=== PATIENT | female | born 1945 | race Hispanic/Latino ===

== ENCOUNTER 2017-05-05 21:20 | Observation (INO) | payer MEDICARE, MEDICAID ==
--- NOTE | 2017-05-05 21:28 | ED PDOC ---
Arrival/HPI - General Time Seen by Provider: 05/05/17 21:23 Historian: Patient - History of Present Illness Narrative History of Present Illness (Text): 05/05/17 21:27 Moni Suarez is a 71 year old female, whose past medical history includes hypertension, asthma/COPD, diabetes, anemia, and GERD, who presents to the Emergency department complaining of chest pain. Patient states she has been experiencing since mid-sternal chest tightness since this morning. Patient states she originally attributed pain to acid reflux but pain did not resolve. Patient was given 4 baby aspirin en route with improvement. Patient notes she had a similar episode 2 days prior. Patient denies any fever, chills, shortness of breath, nausea, vomiting, diarrhea, urinary symptoms, back pain, neck pain, headache, dizziness, or any other complaints. Time/Duration: Other (today) Symptom Onset: Gradual Symptom Course: Unchanged Quality: Pressure Activities at Onset: Light Context: Home Past Medical History - Provider Review Nursing Documentation Reviewed: Yes - Infectious Disease Hx of Infectious Diseases: None - Past Medical History Past Medical History: Non-Contributing - Cardiac Hx Hypertension: Yes - Pulmonary Hx Chronic Obstructive Pulmonary Disease (COPD): Yes - Neurological Hx Dementia: No Hx Seizures: No - Renal Hx Renal Disorder: No - Hematological/Oncological Hx Anemia: Yes - Musculoskeletal/Rheumatological Hx Falls: No - Gastrointestinal Hx Gastroesophageal Reflux: Yes - Psychiatric Hx Depression: No Hx Emotional Abuse: No Hx Physical Abuse: No Hx Substance Use: No - Past Surgical History Past Surgical History: Non-Contributing - Surgical History Other/Comment: lumbosacral spine surg. - Anesthesia Hx Anesthesia: Yes Hx Anesthesia Reactions: No Hx Malignant Hyperthermia: No - Suicidal Assessment Feels Threatened In Home Enviroment: No Family/Social History - Physician Review Nursing Documentation Reviewed: Yes Family/Social History: Unknown Family HX Smoking Status: Former Smoker Hx Alcohol Use: No Hx Substance Use: No Hx Substance Use Treatment: No Allergies/Home Meds Allergies/Adverse Reactions: Allergies honey Allergy (Verified 05/05/17 21:27) RASH dust mites Allergy (Uncoded 05/05/17 21:27) RASH Home Medications: Home Meds Medication Instructions Recorded Confirmed Clonidine Hydrochloride [Clonidine 0.1 mg PO TID 01/10/12 05/05/17 HCl] Diphenhydramine Hydrochlorid 50 mg PO HS 01/10/12 05/05/17 [Benadryl] Montelukast Sodium [Singulair] 10 mg PO DAILY 01/10/12 05/05/17 Cetirizine Hydrochloride 10 mg PO DAILY 12/24/14 05/05/17 [Cetirizine] Hydrochlorothiazide 25 mg PO DAILY 12/24/14 05/05/17 Metformin Hydrochloride [Metformin] 500 mg PO DAILY 12/24/14 05/05/17 Omeprazole 20 mg PO DAILY 12/24/14 05/05/17 Simvastatin 20 mg PO DAILY 12/24/14 05/05/17 Valsartan [Diovan] 320 mg PO DAILY 12/24/14 05/05/17 Review of Systems - Physician Review All systems were reviewed & negative as marked: Yes - Review of Systems Constitutional: Normal. absent: Fevers Eyes: Normal ENT: Normal Respiratory: Normal. absent: SOB, Cough Cardiovascular: Chest Pain Gastrointestinal: Normal. absent: Abdominal Pain, Diarrhea, Nausea, Vomiting Genitourinary Female: Normal. absent: Dysuria, Frequency, Hematuria, Urine Output Changes Musculoskeletal: Normal. absent: Back Pain, Neck Pain Skin: Normal. absent: Rash Neurological: Normal. absent: Headache, Dizziness Endocrine: Normal Hemo/Lymphatic: Normal Psychiatric: Normal Physical Exam Vital Signs Reviewed: Yes Vital Signs Temp Pulse Resp BP Pulse Ox 05/05/17 23:35 70 14 115/65 96 05/05/17 21:46 97.8 F 75 18 137/86 97 Temperature: Afebrile Blood Pressure: Normal Pulse: Regular Respiratory Rate: Normal Appearance: Positive for: Well-Appearing, Non-Toxic, Comfortable Pain Distress: None Mental Status: Positive for: Alert and Oriented X 3 - Systems Exam Head: Present: Atraumatic, Normocephalic Pupils: Present: PERRL Extroacular Muscles: Present: EOMI Conjunctiva: Present: Normal Mouth: Present: Moist Mucous Membranes Neck: Present: Normal Range of Motion Respiratory/Chest: Present: Clear to Auscultation, Good Air Exchange. No: Respiratory Distress, Accessory Muscle Use Cardiovascular: Present: Regular Rate and Rhythm, Normal S1, S2. No: Murmurs Abdomen: Present: Normal Bowel Sounds. No: Tenderness, Distention, Peritoneal Signs Back: Present: Normal Inspection Upper Extremity: Present: Normal Inspection. No: Cyanosis, Edema Lower Extremity: Present: Normal Inspection. No: Edema Neurological: Present: GCS=15, CN II-XII Intact, Speech Normal Skin: Present: Warm, Dry, Normal Color. No: Rashes Psychiatric: Present: Alert, Oriented x 3, Normal Insight, Normal Concentration Medical Decision Making ED Course and Treatment: 05/05/17 21:27 Impression: 71 year old female complaining of chest tightness today. Plan: -- EKG -- Chest X-ray -- Labs, cardiac enzymes -- Zofran -- Reassess and disposition Prior Visits: Notes and results from previous visits were reviewed. On 12/24/2014, pt was seen in the Emergency department for right lower back pain. Pt was admitted to the hospital for further evaluation. Progress Notes: Reviewed EKG, NSR at 67 bpm. Sinus arrhythmia. Incomplete RBBB. Non-specific ST/ T wave changes. 05/05/17 23:25 Reviewed radiology, Chest X-ray shows: Limitations: Radiographic technique - mild. Rotation - mild. Lungs: Minimal subsegmental atelectasis/scarring. No consolidation. Pleural space: No definite pleural effusion. No pneumothorax. Heart: [id number] cardiomegaly. Mediastinum: Tortuosity of thoracic aorta. Bones/joints: No acute fracture. Tubes, lines and devices: Leads overlying chest. IMPRESSION: 1. Cardiomegaly. 2. Incidental/non-acute findings are described above. 05/05/17 23:[address] Sanders, who is aware and accepts pt in to her service. Accepts pt in to her service. Pt will go to Telemetry observation for chest pain. Pt is no acute distress. Discussed results and hospital observation plan with pt , who is aware and verbalizes understanding. - Lab Interpretations Lab Results: 05/05/17 21:35 05/05/17 21:35 Lab Results 05/05/17 21:35: WBC 8.2, RBC 4.04, Hgb 10.9 L, Hct 34.0 L, MCV 84.2, MCH 27.0, MCHC 32.1, RDW 14.9 H, Plt Count 336, MPV 10.1 05/05/17 21:35: Sodium 140, Potassium 4.4, Chloride 100, Carbon Dioxide 28, Anion Gap 16, BUN 27 H, Creatinine 1.0, Est GFR ( Amer) > 60, Est GFR ( Non-Af Amer) 55, Random Glucose 92, Calcium 10.2, Total Bilirubin 0.5, AST 32, ALT 36, Alkaline Phosphatase 62, Lactate Dehydrogenase 511, Total Creatine Kinase 164, Troponin I < 0.01, Total Protein 7.0, Albumin 4.1, Globulin 2.8, Albumin/Globulin Ratio 1.5 05/05/17 21:35: PT 10.4, INR 0.96, APTT 29.9 I have reviewed the lab results: Yes - RAD Interpretation Radiology Orders: 05/05/17 21:29 CHEST PORTABLE [RAD] Stat Senior Publications Specialist: Radiologist - EKG Interpretation Interpreted by ED Physician: Yes Type: 12 lead EKG - Medication Orders Current Medication Orders: Acetaminophen (Tylenol 325mg Tab) 650 mg PO Q6H PRN PRN Reason: Fever >100.4 F Albuterol/Ipratropium (Duoneb 3 Mg/0.5 Mg (3 Ml) Ud) 3 ml IH [id number] [facility] Last Admin: 05/06/17 07:37 Dose: 3 ml Aspirin (Aspirin Chewable) 81 mg PO DAILY [facility] Last Admin: 05/06/17 10:02 Dose: 81 mg Atorvastatin Calcium (Lipitor) 10 mg PO DIN [facility] Insulin Human Regular (Humulin R Low) 0 units SC ACHS [facility] PRN Reason: Protocol Last Admin: 05/06/17 11:41 Dose: Not Given Non-Admin Reason: Blood Sugar Parameter Magnesium Oxide (Mag-Ox) 400 mg PO BID [facility] Stop: 05/06/17 23:59 Last Admin: 05/06/17 11:42 Dose: 400 mg Metoprolol Succinate (Toprol Xl) 25 mg PO BRK [facility] Last Admin: 05/06/17 08:19 Dose: 25 mg Montelukast Sodium (Singulair) 10 mg PO HS [facility] Pantoprazole Sodium (Protonix Ec Tab) 40 mg PO 0630 [facility] Last Admin: 05/06/17 06:21 Dose: 40 mg Discontinued Medications Magnesium Sulfate 2 gm/ Sodium (Chloride) 104 mls @ 102 mls/hr IVPB ONCE ONE Stop: 05/06/17 11:50 Last Admin: 05/06/17 11:42 Dose: 102 mls/hr Ondansetron HCl (Zofran Inj) 4 mg IVP ONCE ONE Stop: 05/05/17 21:42 Last Admin: 05/05/17 21:44 Dose: 4 mg - Scribe Statement The provider has reviewed the documentation as recorded by the [place] Provider Loriibshantal Attestation: All medical record entries made by the Scribe were at my direction and personally dictated by me. I have reviewed the chart and agree that the record accurately reflects my personal performance of the history, physical exam, medical decision making, and the department course for this patient. I have also personally directed, reviewed, and agree with the discharge instructions and disposition. Disposition/Present on Arrival - Present on Arrival Any Indicators Present on Arrival: No History of DVT/PE: No History of Uncontrolled Diabetes: Yes Urinary Catheter: No History of Decub. Ulcer: No History Surgical Site Infection Following: None - Disposition Have Diagnosis and Disposition been Completed?: Yes Diagnosis: Chest pain Disposition: HOSPITALIZED Disposition Time: 23:35 Condition: GOOD
[2017-05-05 21:32] VITALS: BMI 46.8
[2017-05-05 21:54] LABS: MEAN CELL VOLUME 84.2 fl (80.0-105.0); MEAN CORPUSCULAR HGB CONC 32.1 g/dl (31.0-37.0); MEAN PLATELET VOLUME 10.1 fl (7.0-11.0); RED CELL DISTRIBUTION WIDTH 14.9 % (11.5-14.5); WHITE BLOOD COUNT 8.2 10^3/ul (4.5-11.0)
[2017-05-05 22:02] LABS: INR 0.96 (0.93-1.08); PARTIAL THROMBOPLASTIN TIME 29.9 Seconds (23.7-30.8)
[2017-05-05 22:11] LABS: ALB/GLOB RATIO 1.5 (1.1-1.8); ALKALINE PHOSPHATASE 62 U/L (38-126); ALT/SGPT 36 U/L (7-56); AST/SGOT 32 U/L (14-36); BILIRUBIN,TOTAL 0.5 mg/dL (0.2-1.3); BLOOD UREA NITROGEN 27 mg/dL (7-21); CALCIUM 10.2 mg/dL (8.4-10.5); CARBON DIOXIDE 28 mmol/L (21-33); CHLORIDE 100 mmol/L (95-110); GFR AFRICAN-AMERICAN > 60; GLUCOSE,RANDOM 92 mg/dL (70-110); POTASSIUM 4.4 mmol/L (3.6-5.0); SODIUM 140 mmol/L (132-148)
[2017-05-05 22:26] LABS: TROPONIN I < 0.01 ng/mL
--- NOTE | 2017-05-05 23:00 | RAD ---
EXAM: XR Chest, 1 View CLINICAL HISTORY: 71 years old, female; Pain; Chest pain TECHNIQUE: Frontal view of the chest. COMPARISON: No relevant prior studies available. FINDINGS: Limitations: Radiographic technique - mild. Rotation - mild. Lungs: Minimal subsegmental atelectasis/scarring. No consolidation. Pleural space: No definite pleural effusion. No pneumothorax. Heart: [id number] cardiomegaly. Mediastinum: Tortuosity of thoracic aorta. Bones/joints: No acute fracture. Tubes, lines and devices: Leads overlying chest. IMPRESSION: 1. Cardiomegaly. 2. Incidental/non-acute findings are described above.
[2017-05-06] MEDS: Albuterol-Ipratrop 3 mg / 0.5 (3 ml) UD IH SCH ×3 (01:40→20:52)
--- NOTE | 2017-05-06 05:40 | HP ---
HISTORY OF PRESENT ILLNESS: The patient is a 71-year-old came to emergency room because of retrosternal mid chest pain along with tightness, has been happening intermittently for the last 2 days. She had a similar episode 2 days ago, but it subsided automatically and she got this similar chest pain, retrosternal and midsternal, some radiation to the left shoulder, so she called an ambulance and was brought to emergency room. She was given full aspirin on her way. She denies any fever or chills. No history of nausea or vomiting. No history of hemoptysis. No cough or congestion. She does have a history of peptic ulcer disease. She thought that she is having acid reflux. PAST MEDICAL HISTORY: Also significant for; 1. Hypertension. 2. Hyperlipidemia. 3. History of COPD. 4. Non-insulin dependent diabetes. ALLERGIES: SHE IS ALLERGIC TO DUST MITE AND HONEY. MEDICATION AT HOME: She is on valsartan 320 daily, simvastatin 20 mg daily, omeprazole 20 mg daily, Singulair 10 mg daily, metformin 500 daily, hydrochlorothiazide 25 daily, Zyrtec and nebulizer treatment. REVIEW OF SYSTEMS: Significant for retrosternal chest discomfort, but that has resolved by that time she came to emergency room. SOCIAL HISTORY: She lives with her family. History of smoking in the past. PHYSICAL EXAMINATION GENERAL: She is awake and alert, communicative. VITAL SIGNS: She is afebrile, pulse 75, respirations 18, blood pressure 137/86. LUNGS: Bilateral fair airflow. No rhonchi or crackles. HEART: S1 and S2 audible. ABDOMEN: Soft, nontender. No rebound. No guarding. NEUROLOGIC: She is awake and alert, able to communicate. She is obese. EXTREMITIES: Bilateral leg, no edema. LABORATORY DATA: WBC is 8.2, hemoglobin 10.9, hematocrit 34, and platelets of 336. PT 10.4, INR 0.96. Chemistry: Sodium 140, potassium 4.4, chloride 103, CO2 of 28, BUN 27, creatinine 1.0, blood sugar 192. LFTs are within normal limit. She has x-ray chest done shows cardiomegaly. Otherwise, no acute findings. ASSESSMENT: 1. Chest pain rule out peptic ulcer disease versus acute coronary ischemia. 2. Chronic obstructive pulmonary disease. 3. Hypertension. 4. Hyperlipidemia. PLAN: The patient will be placed on observation. We will follow up troponin. Started on aspirin. Monitor her blood sugars. Start her on Protonix and statins. Start her on beta ki. Dr. López has been consulted. We will reevaluate the patient in a.m. Melissa Sanders MD
[2017-05-06] MEDS: Pantoprazole 40 mg EC Tab PO SCH (06:21)
[2017-05-06 07:07] LABS: ALB/GLOB RATIO 1.5 (1.1-1.8); ALKALINE PHOSPHATASE 61 U/L (38-126); ALT/SGPT 45 U/L (7-56); AST/SGOT 42 U/L (14-36); BILIRUBIN,TOTAL 0.4 mg/dL (0.2-1.3); BLOOD UREA NITROGEN 23 mg/dL (7-21); CALCIUM 9.8 mg/dL (8.4-10.5); CARBON DIOXIDE 30 mmol/L (21-33); CHLORIDE 103 mmol/L (98-107); GFR AFRICAN-AMERICAN > 60; GLUCOSE,RANDOM 90 mg/dL (70-110); MAGNESIUM 1.4 mg/dL (1.7-2.2); SODIUM 144 mmol/L (132-148); TOTAL PROTEIN 6.7 g/dL (5.8-8.3)
[2017-05-06 07:25] LABS: FREE T4 1.13 ng/dL (0.78-2.19)
[2017-05-06 07:38] LABS: THYROID STIMULATING HORMONE 3.05 mIU/mL (0.46-4.68)
[2017-05-06] MEDS: Insulin Reg-LOW-Coverage SC SCH ×4 (08:18→22:03)
[2017-05-06] MEDS: Metoprolol Succinate 25 mg XL Tab PO SCH (08:19)
[2017-05-06] MEDS ORDERED: Magnesium Sulfate 2 GM in Sodium Chloride 0.9% 100 ML IVPB ONE (10:49)
[2017-05-06] MEDS: Magnesium Oxide 400 mg Tab UD PO SCH ×2 (11:42→17:57)
--- NOTE | 2017-05-06 13:19 | CARD ---
APPROVED REPORT EKG Measurement Heart [id number] <Conclusion> Normal sinus rhythm with sinus arrhythmia Incomplete right bundle branch block Borderline ECG
[2017-05-06 14:07] LABS: TROPONIN I < 0.01 ng/mL
--- NOTE | 2017-05-06 18:36 | PN ---
DATE: SUBJECTIVE: The patient is 71 years old female seen and examined, lying in bed. Retrosternal discomfort better than before, but still have left lower breast discomfort. No nausea, vomiting, or diarrhea. PHYSICAL EXAMINATION VITAL SIGNS: She is afebrile, pulse 70, respiration 18, blood pressure 128/96. LUNGS: Bilateral fair airflow. No rhonchi or crackles. HEART: S1 and S2 audible. ABDOMEN: Soft, nontender. No rebound. No guarding. NEUROLOGIC: She is awake and alert, able to communicate. LABORATORY DATA: Her LDH is 441, CPK 184 and troponin is 0.01. ASSESSMENT: 1. Unknown cardiac chest pain. 2. Gastritis. 3. Non-insulin dependent diabetes. 4. Hypertension. PLAN: The patient is supposed to have stress test done that has been scheduled on Monday already. Observe the patient overnight, if she remains stable she will be discharged. Melissa Sanders MD
--- NOTE | 2017-05-06 21:55 | CON ---
DATE: 05/06/2017 REASON FOR CONSULTATION: Chest pain, rule out CAD. BRIEF CLINICAL HISTORY: This is a 71-year-old year female with past medical history of prediabetic and hypertension being followed by Dr. Bledsoe at [facility] and is scheduled for a stress test on Monday. Came in with a left arm pain, shooting into the left breast, who came in because she read in the literature that if the pain shoots on the left arm to the chest, as the patient feels well can get early sign of heart attack. So the patient came to the emergency room. Denies any chest pain. Denies any dyspnea on exertion or chest pain on exertion. PAST MEDICAL HISTORY: Significant for hypertension, hyperlipidemia, COPD, obesity, prediabetic. PAST SURGICAL HISTORY: Multiple surgeries, history of meniscus and knee. SOCIAL HISTORY: Quit smoking at more than 10 years ago. Denies any history of alcohol abuse. ALLERGIES: TO SHELLFISH. CURRENT MEDICATIONS: The patient is taking Valsartan 320 mg daily, simvastatin 20 mg daily, Glucophage 500 mg b.i.d., omeprazole, Singulair, hydrochlorothiazide, Zyrtec and nebulizer treatment. REVIEW OF SYSTEMS: Per HPI. Negative except HPI. PHYSICAL EXAMINATION: VITAL SIGNS: As follows: temperature afebrile, heart rate 78, blood pressure 124/72. HEENT: PERRLA. Extraocular muscles intact. NECK: Supple. No carotid bruits or thyromegaly. CHEST: Clear to auscultation. HEART: S1 and S2 regular. ABDOMEN: Soft. EXTREMITIES: Clubbing and cyanosis negative. LABORATORY DATA: Blood workup as follows; WBC 8.8, hemoglobin 10.9, hematocrit 34, and platelet count 336. Chemistry shows sodium 144, potassium 4, chloride 103, carbon dioxide 30, anion gap of 15, BUN 23, and creatinine 1.0. Magnesium 1.4. TSH 1.13. Troponin 0.01. IMPRESSION: Morbid obesity, body mass index 45 kg per meter square, diabetes, hypertension, hyperlipidemia, chest pain, rule out coronary artery disease. RECOMMENDATIONS: We will follow up CPK, troponin. Add one troponin in the morning, one at 6 a.m. Blood sample drawn and another one at 12. If remain negative, the patient can be discharged home. Needs supplement potassium. We will supplement potassium. Followup with Dr. Bledsoe on Monday for a stress test. Brinda López MD
[2017-05-07 01:01] VITALS: RESP 20
[2017-05-07] MEDS: Albuterol-Ipratrop 3 mg / 0.5 (3 ml) UD IH SCH ×2 (03:10→07:55)
[2017-05-07] MEDS: Pantoprazole 40 mg EC Tab PO SCH (05:51)
[2017-05-07 06:42] VITALS: BP 149/86; TEMP 97.9; O2SAT 95
[2017-05-07] MEDS: Insulin Reg-LOW-Coverage SC SCH (07:59)
[2017-05-07] MEDS: Metoprolol Succinate 25 mg XL Tab PO SCH (08:32)
[2017-05-07 08:33] VITALS: PULSE 81
--- NOTE | 2017-05-07 16:02 | PN ---
REASON FOR CONSULTATION: Followup chest pain, rule out CAD. SUBJECTIVE: No further episode of chest pain, short of breath, palpitation, wanted to go home and scheduled stress test as outpatient with Dr. Bledsoe on Monday at [facility]. OBJECTIVE: GENERAL: Sitting in the bed, not in apparent distress. VITAL SIGNS: Temperature afebrile, heart rate 80, blood pressure 149/86. HEENT: PERRLA. Extraocular muscles intact. NECK: Supple. No carotid bruits or thyromegaly. CHEST: Clear to auscultation. HEART: S1 and S2 regular. ABDOMEN: Soft. EXTREMITIES: Clubbing and cyanosis negative. LABORATORY DATA: Blood workup as follows: WBC 8.8, hemoglobin 10.9, hematocrit 34, and platelet count 336. Chemistry shows sodium 144, potassium 4, chloride 103, carbon dioxide 30, anion gap of 15, BUN 23, and creatinine 1.0. Troponin 0.0, x3, 4 negative. Total protein 6.7, albumin 4, and albumin-globulin ratio 1.5. TSH 1.05. IMPRESSION: Atypical chest pain, no evidence of acute coronary syndrome, no evidence of acute myocardial infarction, obesity, diabetes, multivessel coronary artery disease. PLAN: Suggested echo and stress test. The patient wanted to get it done with his primary book[employer] librarian Dr. Bledsoe, and scheduled for Monday. Discussed with Dr. Sanders possibly the patient will be discharged and have his stress test with his PMD. 05/07/201716:01:56 Brinda López MD <
--- NOTE | 2017-05-08 09:29 | DS ---
HISTORY OF PRESENT ILLNESS: The patient is 71 years old, seen and examined, sitting in chair, seems to be comfortable, has left lower chest discomfort below the breast area. No nausea or vomiting. No diarrhea. Eating and tolerating. PHYSICAL EXAMINATION: VITAL SIGNS: She is afebrile, pulse 81, respirations 20 and blood pressure 149/86. LUNGS: Bilateral fair air flow. No rhonchi or crackle. HEART: S1 and S2 audible. ABDOMEN: Soft and nontender. No rebound. No guarding. NEUROLOGIC: She is awake and alert, able to communicate. Moves all extremities. ASSESSMENT: 1. Chest pain, atypical. 2. Hypertension. 3. Hyperlipidemia. 4. Morbid obesity. 5. Gastroesophageal reflux disease. 6. Non-insulin dependent diabetes. PLAN: The patient is hemodynamically stable. There is no evidence of acute coronary syndrome. The patient has schedule stress test as outpatient that she will call on Monday and she will have stress test done in [place]. She will followup with her PMD, Dr. Porter. Melissa Sanders MD
== END 2017-05-07 11:07 | disposition home or self-care (01) ==
LOC: ED 21:20 → ERH 23:34 → 2RNO 05-06 00:46
PROVIDERS: ADMIT Internal Medicine; ATTEND Internal Medicine
DX: R07.89 Other chest pain (principal); I51.7 Cardiomegaly; I11.9 Hypertensive heart disease without heart failure; E78.5 Hyperlipidemia, unspecified; E66.01 Morbid (severe) obesity due to excess calories; K21.9 Gastro-esophageal reflux disease without esophagitis; E11.9 Type 2 diabetes mellitus without complications; Z79.84 Long term (current) use of oral hypoglycemic drugs; J44.9 Chronic obstructive pulmonary disease, unspecified; K29.70 Gastritis, unspecified, without bleeding; Z68.42 Body mass index [BMI] 45.0-49.9, adult; Z87.891 Personal history of nicotine dependence
CPT/HCPCS: 36415; 71010; 80053; 82550; 82948; 83036; 83615; 83735; 84439; 84443; 84484; 85027; 85610; 85730; 93005; 94640; 96374; 99285; G0378; J2405; J3475

== ENCOUNTER 2018-05-21 15:34 | Emergency (ER) | payer MEDICARE, MEDICAID ==
[2018-05-21 16:34] VITALS: BMI 43.4
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
[2018-05-21 16:42] VITALS: RESP 18; TEMP 98.6
[2018-05-21 17:58] VITALS: BP 138/80; PULSE 76; O2SAT 99
--- NOTE | 2018-05-21 19:48 | US ---
PROCEDURE: Right lower extremity venous US HISTORY: Leg pain and swelling. Evaluate for DVT. PHYSICIAN(S): Raymond Flores M.D. TECHNIQUE: Duplex sonography and color-flow Doppler with graded compression were used to evaluate the deep venous system of the right lower extremity. FINDINGS: The visualized deep venous system of the right lower extremity is sonographically normal and compressible. Normal waveforms and augmentation are seen. There is no sonographic evidence for deep venous thrombosis in the visualized segments of the right lower extremity. IMPRESSION: 1. No sonographic evidence for deep venous thrombosis in the visualized segments of the right lower extremity.
== END 2018-05-21 17:58 | disposition home or self-care (01) ==
LOC: ED 15:34
DX: S86.811A Strain of other muscle(s) and tendon(s) at lower leg level, right leg, initial encounter (principal); V49.59XA Passenger injured in collision with other motor vehicles in traffic accident, initial encounter; Y92.410 Unspecified street and highway as the place of occurrence of the external cause